=== PATIENT | male | born 1980 | race American Indian/Alaskan Native ===

== ENCOUNTER 2018-10-29 22:18 | Observation (INO) | payer MEDICAID, OTHER ==
[2018-10-29] MEDS ORDERED: Ondansetron 4 MG/2 ML SDV IV ONE ×2 (22:19→23:48)
[2018-10-29] MEDS ORDERED: Sodium Chloride 0.9% 1,000 ML IV ONE (22:20)
[2018-10-29] MEDS ORDERED: Pantoprazole 40 MG Vial IVPUSH ONE (22:35)
[2018-10-29] MEDS ORDERED: Metoclopramide 10 MG/2 ML SDV IVPUSH ONE (22:51)
[2018-10-29 22:52] LABS: ANION GAP 17.8; CHLORIDE,CL 102 mmol/L (101-111); SODIUM,NA 139 mmol/L (135-145)
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
[2018-10-30] MEDS ORDERED: Promethazine 25 MG/ML SDV IM PRN (01:20)
[2018-10-30] MEDS ORDERED: Ondansetron 4 MG/2 ML SDV IVPUSH PRN (01:20)
[2018-10-30] MEDS ORDERED: Sodium Chloride 0.9% 1,000 ML IV SCH (01:30)
[2018-10-30] MEDS ORDERED: Nicotine 14 MG/24 Hr Patch TRDERM SCH (01:30)
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
[2018-10-30] MEDS ORDERED: metFORMIN 500 MG Tab PO SCH (08:00)
[2018-10-30] MEDS ORDERED: Pantoprazole 40 MG Vial IVPUSH SCH (09:00)
[2018-10-30] MEDS ORDERED: Lisinopril 20 MG Tab PO SCH (09:00)
[2018-10-30] MEDS ORDERED: Sodium Chloride 0.9% 10 ML Syringe FLUSH PRN (10:47)
[2018-10-30] MEDS ORDERED: Benzocaine 20% Topical Spray UD MUCMEM ONE (11:46)
[2018-10-30] MEDS ORDERED: Midazolam 1 MG/ML 2 ML SDV ONE ×2 (11:46→12:11)
--- NOTE | 2018-10-30 11:46 | PCM.SN ---
- Free Text/Narrative Note: Asked to see patient for possible GI bleed. Had black tar stool and coffee ground emesis. History of epigastric abdominal pain. Hgb is stable. Discussed rec for EGD and will proceed with this today. Dr. Mccormack
--- NOTE | 2018-10-30 12:08 | PCM.PN ---
- General Info Date of Service: 10/30/18 Admission Dx/Problem (Free Text): Admission Diagnosis/Problem Admission Diagnosis/Problem GI bleed not requiring more than 4 units of blood in 24 hours, ICU, or surgery Subjective Update: No acute events overnight. Had nausea but did not have emesis. Tried taking clear liquids and had epigastric pain with warm food. Has not tried to ambulate yet. Otherwise, no acute concerns. - Review of Systems General: Reports: No Symptoms HEENT: Reports: No Symptoms Pulmonary: Reports: No Symptoms Cardiovascular: Reports: No Symptoms Gastrointestinal: Reports: No Symptoms Genitourinary: Reports: No Symptoms Musculoskeletal: Reports: No Symptoms Skin: Reports: No Symptoms Neurological: Reports: No Symptoms Psychiatric: Reports: No Symptoms - Patient Data Vitals - Most Recent: Last Vital Signs Temp 99.7 F 10/30/18 08:19 Pulse 91 10/30/18 08:19 Resp 18 10/30/18 08:19 BP 162/88 H 10/30/18 08:35 Pulse Ox 97 10/30/18 08:19 Weight - Most Recent: 221 lb 14.4 oz I&O - Last 24 Hours: Intake & Output 10/29/18 10/30/18 10/30/18 22:59 06:59 14:59 Intake Total 482 738 Balance 482 738 Lab Results Last 24 Hours: Laboratory Results - last 24 hr 10/29/18 10/29/18 10/29/18 Range/Units 22:26 22:26 23:38 WBC 11.8 H (5.0-10.0) 10^3/uL RBC 4.89 (4.6-6.2) 10^6/uL Hgb 14.6 (14.0-18.0) g/dL Hct 42.3 (40.0-54.0) % MCV 86.5 (80-100) fL MCH 29.9 (27.0-34.0) pg MCHC 34.5 (33.0-35.0) g/dL Plt Count 174 (150-450) 10^3/uL Neut % (Auto) 88.2 H (42.2-75.2) % Lymph % (Auto) 7.5 L (20.5-50.1) % [place] % (Auto) 4.1 (2-8) % Eos % (Auto) 0.0 L (1.0-3.0) % Baso % (Auto) 0.2 (0.0-1.0) % PT (9.0-12.0) SEC INR (0.9-1.2) Sodium 139 (135-145) mmol/L Potassium 3.8 (3.6-5.0) mmol/L Chloride 102 (101-111) mmol/L Carbon Dioxide 23.0 (21.0-31.0) mmol/L Anion Gap 17.8 BUN 23 H (7-18) mg/dL Creatinine 1.3 (0.6-1.3) mg/dL Est Cr Clr Drug Dosing 81.25 mL/min Estimated GFR (MDRD) > 60 BUN/Creatinine Ratio 17.69 Glucose 170 H (74-105) mg/dL Lactic Acid 1.1 (0.5-2.2) mmol/L Calcium 8.9 (8.4-10.2) mg/dl Total Bilirubin 1.8 H (0.2-1.0) mg/dL AST 29 (10-42) IU/L ALT 27 (10-60) IU/L Alkaline Phosphatase 71 (42-121) IU/L Total Protein 7.8 (6.7-8.2) g/dl Albumin 4.1 (3.2-5.5) g/dl Globulin 3.7 Albumin/Globulin Ratio 1.11 Amylase 43 (28-100) U/L Lipase (22-51) U/L Blood Type Gel Antibody Screen 10/30/18 10/30/18 10/30/18 Range/Units 02:30 02:30 02:30 WBC (5.0-10.0) 10^3/uL RBC (4.6-6.2) 10^6/uL Hgb 14.0 (14.0-18.0) g/dL Hct 40.4 (40.0-54.0) % MCV (80-100) fL MCH (27.0-34.0) pg MCHC (33.0-35.0) g/dL Plt Count (150-450) 10^3/uL Neut % (Auto) (42.2-75.2) % Lymph % (Auto) (20.5-50.1) % [place] % (Auto) (2-8) % Eos % (Auto) (1.0-3.0) % Baso % (Auto) (0.0-1.0) % PT 9.9 (9.0-12.0) SEC INR 1.0 (0.9-1.2) Sodium (135-145) mmol/L Potassium (3.6-5.0) mmol/L Chloride (101-111) mmol/L Carbon Dioxide (21.0-31.0) mmol/L Anion Gap BUN (7-18) mg/dL Creatinine (0.6-1.3) mg/dL Est Cr Clr Drug Dosing mL/min Estimated GFR (MDRD) BUN/Creatinine Ratio Glucose (74-105) mg/dL Lactic Acid (0.5-2.2) mmol/L Calcium (8.4-10.2) mg/dl Total Bilirubin (0.2-1.0) mg/dL AST (10-42) IU/L ALT (10-60) IU/L Alkaline Phosphatase (42-121) IU/L Total Protein (6.7-8.2) g/dl Albumin (3.2-5.5) g/dl Globulin Albumin/Globulin Ratio Amylase (28-100) U/L Lipase 24 (22-51) U/L Blood Type Gel Antibody Screen 10/30/18 10/30/18 10/30/18 Range/Units 02:30 06:20 10:35 WBC (5.0-10.0) 10^3/uL RBC (4.6-6.2) 10^6/uL Hgb 13.6 L 13.8 L (14.0-18.0) g/dL Hct 39.3 L 40.4 (40.0-54.0) % MCV (80-100) fL MCH (27.0-34.0) pg MCHC (33.0-35.0) g/dL Plt Count (150-450) 10^3/uL Neut % (Auto) (42.2-75.2) % Lymph % (Auto) (20.5-50.1) % [place] % (Auto) (2-8) % Eos % (Auto) (1.0-3.0) % Baso % (Auto) (0.0-1.0) % PT (9.0-12.0) SEC INR (0.9-1.2) Sodium (135-145) mmol/L Potassium (3.6-5.0) mmol/L Chloride (101-111) mmol/L Carbon Dioxide (21.0-31.0) mmol/L Anion Gap BUN (7-18) mg/dL Creatinine (0.6-1.3) mg/dL Est Cr Clr Drug Dosing mL/min Estimated GFR (MDRD) BUN/Creatinine Ratio Glucose (74-105) mg/dL Lactic Acid (0.5-2.2) mmol/L Calcium (8.4-10.2) mg/dl Total Bilirubin (0.2-1.0) mg/dL AST (10-42) IU/L ALT (10-60) IU/L Alkaline Phosphatase (42-121) IU/L Total Protein (6.7-8.2) g/dl Albumin (3.2-5.5) g/dl Globulin Albumin/Globulin Ratio Amylase (28-100) U/L Lipase (22-51) U/L Blood Type B POSITIVE Gel Antibody Screen Negative Oj Results Last 24 Hours: Microbiology 10/29/18 22:35 Stool Occult Blood (OJ) - Final Stool / Feces Med Orders - Current: Current Medications Sodium Chloride (Normal Saline) 1,000 mls @ 125 mls/hr IV ASDIRECTED [facility] Last Admin: 10/30/18 01:58 Dose: 125 mls/hr Lisinopril (Prinivil) 20 mg PO DAILY [facility] Last Admin: 10/30/18 08:35 Dose: 20 mg Metformin HCl (Glucophage) 1,000 mg PO BIDMEALS [facility] Last Admin: 10/30/18 08:35 Dose: 1,000 mg Nicotine (Habitrol) 14 mg TRDERM DAILY [facility] Last Admin: 10/30/18 01:56 Dose: 14 mg Ondansetron HCl (Zofran) 4 mg IVPUSH Q4H PRN PRN Reason: Nausea/Vomiting Last Admin: 10/30/18 08:34 Dose: 4 mg Pantoprazole Sodium (Protonix Iv) 40 mg IVPUSH Q12H [facility] Last Admin: 10/30/18 08:34 Dose: 40 mg Promethazine HCl (Phenergan) 6.25 mg IM Q6H PRN PRN Reason: Nausea/Vomiting Last Admin: 10/30/18 01:59 Dose: 6.25 mg Sodium Chloride (Saline Flush) 10 ml FLUSH ASDIRECTED PRN PRN Reason: Keep Vein Open Discontinued Medications Benzocaine (Hurricaine One 20%) Confirm Administered Dose 1 each MUCMEM .STK- MED ONE Stop: 10/30/18 11:47 Sodium Chloride (Normal Saline) 1,000 mls @ 999 mls/hr IV .BOLUS ONE Stop: 10/29/18 23:20 Last Admin: 10/29/18 22:28 Dose: 999 mls/hr Metoclopramide HCl (Reglan) 10 mg IVPUSH ONETIME ONE Stop: 10/29/18 22:52 Last Admin: 10/29/18 22:54 Dose: 10 mg Midazolam HCl (Versed 1 Mg/Ml) Confirm Administered Dose 4 mg .ROUTE .STK-MED ONE Stop: 10/30/18 11:47 Ondansetron HCl (Zofran) 4 mg IV ONETIME ONE Stop: 10/29/18 22:20 Last Admin: 10/29/18 22:28 Dose: 4 mg Ondansetron HCl (Zofran) 4 mg IV ONETIME ONE Stop: 10/29/18 23:49 Last Admin: 10/29/18 23:50 Dose: 4 mg Pantoprazole Sodium (Protonix Iv) 80 mg IVPUSH .BOLUS ONE Stop: 10/29/18 22:36 Last Admin: 10/29/18 22:40 Dose: 80 mg - Exam General: Alert, Oriented HEENT: Pupils Equal, Pupils Reactive, Mucous Membr. Moist/[place] Neck: Supple Lungs: Clear to Auscultation, Normal Respiratory Effort Cardiovascular: Regular Rate, Regular Rhythm GI/Abdominal Exam: Normal Bowel Sounds, Soft, Non-Tender, No Distention Extremities: Normal Inspection, Non-Tender, No Pedal Edema Peripheral Pulses: 2+: Radial (L), Radial (R), Dorsalis Pedis (L), Dorsalis Pedis (R) Skin: Warm, Dry, Intact Neurological: No New Focal Deficit Psy/Mental Status: Alert, Normal Affect, Normal Mood - Problem List & Annotations (1) GI bleed SNOMED Code(s): 62276577 Code(s): K92.2 - GASTROINTESTINAL HEMORRHAGE, UNSPECIFIED Status: Acute Current Visit: Yes (2) Dehydration SNOMED Code(s): 69307084 Code(s): E86.0 - DEHYDRATION Status: Acute Current Visit: No (3) Gastroenteritis SNOMED Code(s): 89963134 Code(s): K52.9 - NONINFECTIVE GASTROENTERITIS AND COLITIS, UNSPECIFIED Status: Acute Current Visit: No (4) HTN (hypertension) SNOMED Code(s): 13532020 Code(s): I10 - ESSENTIAL (PRIMARY) HYPERTENSION Status: Acute Current Visit: No Qualifiers: Hypertension type: unspecified Qualified Code(s): I10 - Essential (primary ) hypertension (5) Hematest positive stools SNOMED Code(s): 92799721 Code(s): R19.5 - OTHER FECAL ABNORMALITIES Status: Acute Current Visit: No (6) IDDM (insulin dependent diabetes mellitus) SNOMED Code(s): 48178619 Code(s): E11.9 - TYPE 2 DIABETES MELLITUS WITHOUT COMPLICATIONS; Z79.4 - [employer]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 INSULIN Status: Acute Current Visit: No - Problem List Review Problem List Initiated/Reviewed/Updated: Yes - My Orders Last 24 Hours: My Active Orders 10/30/18 01:20 Patient Status [ADT] Routine Oxygen Therapy [RC] PRN Up With Assistance [RC] ASDIRECTED VTE/DVT Education [RC] PER UNIT ROUTINE Vital Signs [RC] Q4H Ondansetron [Zofran] 4 mg IVPUSH Q4H PRN Promethazine [Phenergan] 6.25 mg IM Q6H PRN Anticoagulation Contraindications VTE [AST] Per Unit Routine Resuscitation Status Routine 10/30/18 01:30 Nicotine [Habitrol] 14 mg TRDERM DAILY Sodium Chloride 0.9% [Normal Saline] 1,000 ml IV ASDIRECTED 10/30/18 01:52 H PYLORI STOOL ANTIGEN [MREF] Routine 10/30/18 08:00 metFORMIN [Glucophage] 1,000 mg PO BIDMEALS 10/30/18 09:00 Lisinopril [Prinivil] 20 mg PO DAILY Pantoprazole [ProTONIX IV] 40 mg IVPUSH Q12H 10/30/18 10:47 Peripheral IV Care [RC] 08,20 Sodium Chloride 0.9% [Saline Flush] 10 ml FLUSH ASDIRECTED PRN Peripheral IV Insertion Adult [OM.PC] Routine 10/30/18 14:30 HEMOGLOBIN/HEMATOCRIT,HH [HEME] Q4H 10/30/18 18:30 HEMOGLOBIN/HEMATOCRIT,HH [HEME] Q4H 10/30/18 Lunch Advance Diet Instructions [DIET] - Plan Plan:: #Upper GI bleed: patient with coffee-ground emesis and melenic stools. Denies prior episodes. Possible [place] tear vs peptic ulcer. - CLD - Trend H/H - Transfuse for Hb <7 or if patient is symptomatic. - Proceed to obtain endoscopy inpatient . - IV PPI. - Obtain H pylori serology #N/V/D: improved with IV Reglan and IV zofran. - Continue Zofran IV/PO - Start phenergan IV/PO - Use PO if tolerated. - If diarrhea recurs, obtain stool studies. #HTN: continue lisinopril. # DM II: - continue metformin. - Hold Levemir. DVT Ppx: SCD GI Ppx: PPI Code Status: Full Code.
[2018-10-30] MEDS ORDERED: Midazolam 1 MG/ML 2 ML SDV IV ONE ×4 (12:10→16:49)
[2018-10-30] MEDS ORDERED: Benzocaine 20% Oral Spray 59.2 ML Canister MUCMEM ONE (12:13)
[2018-10-30] MEDS ORDERED: Dextrose 5%-0.45% NaCl 1,000 ML IV SCH (12:15)
--- NOTE | 2018-10-30 13:05 | OR ---
DATE: 10/30/2018 PREOPERATIVE DIAGNOSIS: Gastrointestinal bleed. POSTOPERATIVE DIAGNOSIS: Gastrointestinal bleed. PROCEDURE: Esophagogastroduodenoscopy with photographs. ANESTHESIA: Conscious sedation with IV Versed. SPECIMEN: None. OPERATIVE FINDINGS: A large hiatal hernia with at least half the stomach in a mediastinal hernia sac and significant distal esophagitis, probably the cause of his Hemoccult-positive cards. He has no evidence of gastric ulcerations, however, or duodenal ulcers. INDICATION FOR PROCEDURE: This 38-year-old male has been admitted to the hospital for evaluation of black tarry stools and coffee-ground emesis. He has a stable hemoglobin, however. PROCEDURE IN DETAIL: After adequate preparation, a gastroscope was inserted into the esophagus and passed down to the distal esophagus. It showed some white coating plaques with evidence of some prior bleeding from the raw tissue at the distal esophagus. Shows no evidence of masses or distal growths. The scope was advanced through the EG junction into the stomach, and it took me quite a while to figure out that this would represent a large hiatal hernia sac. It was difficult to find the opening through which the stomach came through, but I was eventually oriented enough to advance the scope through the diaphragmatic opening into the remaining stomach which contained the antrum and pre-pyloric area. There was no evidence of bleeding in this area. The scope was advanced through the pylorus, and the first and second parts of the duodenum were normal. On withdrawal of the scope, a photograph of the hiatal hernia was taken more than likely. However, this does not need surgery even though it is very impressive and large. His bleeding is mostly I think going to be esophageal in origin. Air was suctioned from the stomach, and the scope was removed. [facility] /[id number]
[2018-10-30] MEDS ORDERED: Ondansetron 4 MG Tab.DIS PO PRN (16:09)
--- NOTE | 2018-10-30 16:19 | PCM.DCSUM1 ---
Discharge Summary - Hospital Course Free Text/Narrative:: Assessment a 58-year-old male with medical history significant for diabetes, hypertension, obesity, and tobacco use who presented to the ED with complaints of nausea, vomiting, coffee-ground emesis, diarrhea, and lightheadedness. He was given IV Zofran and Reglan in the ED. His nausea resolved. His hemoglobin dropped from 14.6 on presentation to 13.6. He underwent endoscopy with finding of large hiatal hernia and erosive esophagitis. He tolerated PO diet. He was discharged home to follow up with his PCP. He was given Zofran for nausea and protonix. Diagnosis: Stroke: No - Discharge Data Discharge Date: 10/30/18 Discharge Disposition: Home, Self-Care 01 Condition: Stable - Discharge Diagnosis/Problem(s) (1) GI bleed SNOMED Code(s): 40552701 ICD Code: K92.2 - GASTROINTESTINAL HEMORRHAGE, UNSPECIFIED Status: Acute Current Visit: Yes (2) Dehydration SNOMED Code(s): 45772563 ICD Code: E86.0 - DEHYDRATION Status: Acute Current Visit: Yes (3) Gastroenteritis SNOMED Code(s): 62503973 ICD Code: K52.9 - NONINFECTIVE GASTROENTERITIS AND COLITIS, UNSPECIFIED Status: Acute Current Visit: Yes (4) HTN (hypertension) SNOMED Code(s): 36725408 ICD Code: I10 - ESSENTIAL (PRIMARY) HYPERTENSION Status: Acute Current Visit: Yes Qualifiers: Hypertension type: unspecified Qualified Code(s): I10 - Essential (primary ) hypertension (5) Hematest positive stools SNOMED Code(s): 97997523 ICD Code: R19.5 - OTHER FECAL ABNORMALITIES Status: Acute Current Visit: Yes (6) IDDM (insulin dependent diabetes mellitus) SNOMED Code(s): 72632213 ICD Code: E11.9 - TYPE 2 DIABETES MELLITUS WITHOUT COMPLICATIONS; 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 INSULIN Status: Acute Current Visit: No (7) Hiatal hernia SNOMED Code(s): 51897141 ICD Code: K44.9 - DIAPHRAGMATIC HERNIA WITHOUT OBSTRUCTION OR GANGRENE Status: Acute Current Visit: Yes (8) Esophagitis determined by endoscopy SNOMED Code(s): 75734415, 342736650 ICD Code: K20.9 - ESOPHAGITIS, UNSPECIFIED Status: Acute Current Visit: Yes - Patient Instructions Diet: Heart Healthy Diet Activity: As Tolerated Driving: May Drive Today Showering/Bathing: May Shower Notify Provider of: Nausea and/or Vomiting - Discharge Plan *PRESCRIPTION DRUG MONITORING PROGRAM REVIEWED*: Not Applicable *COPY OF PRESCRIPTION DRUG MONITORING REPORT IN PATIENT IDALIA: Not Applicable Prescriptions/Med Rec: Ondansetron [Zofran ODT] 4 mg PO Q6H PRN #20 tab.dis PRN Reason: Nausea/Vomiting Pantoprazole [ProTONIX] 40 mg PO BIDAC #60 tab.cr Home Medications: Home Meds Insulin Detemir [Levemir] 2 unit SUBCUT DAILY 04/17/18 [History] Lisinopril 20 mg PO DAILY 04/17/18 [History] metFORMIN HCl [Metformin HCl] 1,000 mg PO BID 04/17/18 [History] Ondansetron [Zofran ODT] 4 mg PO Q6H PRN #20 tab.dis 10/30/18 [Rx] Pantoprazole [ProTONIX] 40 mg PO BIDAC #60 tab.cr 10/30/18 [Rx] Oxygen Therapy Mode: Room Air Patient Handouts: Esophagogastroduodenoscopy, Esophagitis, Ondansetron tablets , Hiatal Hernia, Esophagogastroduodenoscopy, Care After - Discharge Summary/Plan Comment DC Time >30 min.: No - General Info Date of Service: 10/30/18 Admission Dx/Problem (Free Text: Admission Diagnosis/Problem Admission Diagnosis/Problem GI bleed not requiring more than 4 units of blood in 24 hours, ICU, or surgery Subjective Update: See daily progress note - Review of Systems Systems Review Comment: See daily progress note. - Patient Data Vitals - Most Recent: Last Vital Signs Temp 98.7 F 10/30/18 15:43 Pulse 93 10/30/18 15:43 Resp 20 10/30/18 15:43 BP 121/79 10/30/18 15:43 Pulse Ox 99 10/30/18 15:43 Weight - Most Recent: 221 lb 14.4 oz I&O - Last 24 hours: Intake & Output 10/30/18 10/30/18 10/30/18 06:59 14:59 22:59 Intake Total 482 738 Balance 482 738 Lab Results - Last 24 hrs: Laboratory Results - last 24 hr 10/29/18 10/29/18 10/29/18 Range/Units 22:26 22:26 23:38 WBC 11.8 H (5.0-10.0) 10^3/uL RBC 4.89 (4.6-6.2) 10^6/uL Hgb 14.6 (14.0-18.0) g/dL Hct 42.3 (40.0-54.0) % MCV 86.5 (80-100) fL MCH 29.9 (27.0-34.0) pg MCHC 34.5 (33.0-35.0) g/dL Plt Count 174 (150-450) 10^3/uL Neut % (Auto) 88.2 H (42.2-75.2) % Lymph % (Auto) 7.5 L (20.5-50.1) % [place] % (Auto) 4.1 (2-8) % Eos % (Auto) 0.0 L (1.0-3.0) % Baso % (Auto) 0.2 (0.0-1.0) % PT (9.0-12.0) SEC INR (0.9-1.2) Sodium 139 (135-145) mmol/L Potassium 3.8 (3.6-5.0) mmol/L Chloride 102 (101-111) mmol/L Carbon Dioxide 23.0 (21.0-31.0) mmol/L Anion Gap 17.8 BUN 23 H (7-18) mg/dL Creatinine 1.3 (0.6-1.3) mg/dL Est Cr Clr Drug Dosing 81.25 mL/min Estimated GFR (MDRD) > 60 BUN/Creatinine Ratio 17.69 Glucose 170 H (74-105) mg/dL Lactic Acid 1.1 (0.5-2.2) mmol/L Calcium 8.9 (8.4-10.2) mg/dl Total Bilirubin 1.8 H (0.2-1.0) mg/dL AST 29 (10-42) IU/L ALT 27 (10-60) IU/L Alkaline Phosphatase 71 (42-121) IU/L Total Protein 7.8 (6.7-8.2) g/dl Albumin 4.1 (3.2-5.5) g/dl Globulin 3.7 Albumin/Globulin Ratio 1.11 Amylase 43 (28-100) U/L Lipase (22-51) U/L Blood Type Gel Antibody Screen 10/30/18 10/30/18 10/30/18 Range/Units 02:30 02:30 02:30 WBC (5.0-10.0) 10^3/uL RBC (4.6-6.2) 10^6/uL Hgb 14.0 (14.0-18.0) g/dL Hct 40.4 (40.0-54.0) % MCV (80-100) fL MCH (27.0-34.0) pg MCHC (33.0-35.0) g/dL Plt Count (150-450) 10^3/uL Neut % (Auto) (42.2-75.2) % Lymph % (Auto) (20.5-50.1) % [place] % (Auto) (2-8) % Eos % (Auto) (1.0-3.0) % Baso % (Auto) (0.0-1.0) % PT 9.9 (9.0-12.0) SEC INR 1.0 (0.9-1.2) Sodium (135-145) mmol/L Potassium (3.6-5.0) mmol/L Chloride (101-111) mmol/L Carbon Dioxide (21.0-31.0) mmol/L Anion Gap BUN (7-18) mg/dL Creatinine (0.6-1.3) mg/dL Est Cr Clr Drug Dosing mL/min Estimated GFR (MDRD) BUN/Creatinine Ratio Glucose (74-105) mg/dL Lactic Acid (0.5-2.2) mmol/L Calcium (8.4-10.2) mg/dl Total Bilirubin (0.2-1.0) mg/dL AST (10-42) IU/L ALT (10-60) IU/L Alkaline Phosphatase (42-121) IU/L Total Protein (6.7-8.2) g/dl Albumin (3.2-5.5) g/dl Globulin Albumin/Globulin Ratio Amylase (28-100) U/L Lipase 24 (22-51) U/L Blood Type Gel Antibody Screen 10/30/18 10/30/1819 Range/Units 02:30 06:20 10:35 WBC (5.0-10.0) 10^3/uL RBC (4.6-6.2) 10^6/uL Hgb 13.6 L 13.8 L (14.0-18.0) g/dL Hct 39.3 L 40.4 (40.0-54.0) % MCV (80-100) fL MCH (27.0-34.0) pg MCHC (33.0-35.0) g/dL Plt Count (150-450) 10^3/uL Neut % (Auto) (42.2-75.2) % Lymph % (Auto) (20.5-50.1) % [place] % (Auto) (2-8) % Eos % (Auto) (1.0-3.0) % Baso % (Auto) (0.0-1.0) % PT (9.0-12.0) SEC INR (0.9-1.2) Sodium (135-145) mmol/L Potassium (3.6-5.0) mmol/L Chloride (101-111) mmol/L Carbon Dioxide (21.0-31.0) mmol/L Anion Gap BUN (7-18) mg/dL Creatinine (0.6-1.3) mg/dL Est Cr Clr Drug Dosing mL/min Estimated GFR (MDRD) BUN/Creatinine Ratio Glucose (74-105) mg/dL Lactic Acid (0.5-2.2) mmol/L Calcium (8.4-10.2) mg/dl Total Bilirubin (0.2-1.0) mg/dL AST (10-42) IU/L ALT (10-60) IU/L Alkaline Phosphatase (42-121) IU/L Total Protein (6.7-8.2) g/dl Albumin (3.2-5.5) g/dl Globulin Albumin/Globulin Ratio Amylase (28-100) U/L Lipase (22-51) U/L Blood Type B POSITIVE Gel Antibody Screen Negative 10/30/18 Range/Units 14:24 WBC (5.0-10.0) 10^3/uL RBC (4.6-6.2) 10^6/uL Hgb 13.6 L (14.0-18.0) g/dL Hct 39.9 L (40.0-54.0) % MCV (80-100) fL MCH (27.0-34.0) pg MCHC (33.0-35.0) g/dL Plt Count (150-450) 10^3/uL Neut % (Auto) (42.2-75.2) % Lymph % (Auto) (20.5-50.1) % [place] % (Auto) (2-8) % Eos % (Auto) (1.0-3.0) % Baso % (Auto) (0.0-1.0) % PT (9.0-12.0) SEC INR (0.9-1.2) Sodium (135-145) mmol/L Potassium (3.6-5.0) mmol/L Chloride (101-111) mmol/L Carbon Dioxide (21.0-31.0) mmol/L Anion Gap BUN (7-18) mg/dL Creatinine (0.6-1.3) mg/dL Est Cr Clr Drug Dosing mL/min Estimated GFR (MDRD) BUN/Creatinine Ratio Glucose (74-105) mg/dL Lactic Acid (0.5-2.2) mmol/L Calcium (8.4-10.2) mg/dl Total Bilirubin (0.2-1.0) mg/dL AST (10-42) IU/L ALT (10-60) IU/L Alkaline Phosphatase (42-121) IU/L Total Protein (6.7-8.2) g/dl Albumin (3.2-5.5) g/dl Globulin Albumin/Globulin Ratio Amylase (28-100) U/L Lipase (22-51) U/L Blood Type Gel Antibody Screen YUDITH Results - Last 24 hrs: Microbiology 10/29/18 22:35 Stool Occult Blood (YUDITH) - Final Stool / Feces Med Orders - Current: Current Medications Dextrose/Sodium Chloride (Dextrose 5%-1/2 Ns) 1,000 mls @ 75 mls/hr IV ASDIRECTED [facility] Last Admin: 10/30/18 12:10 Dose: 75 mls/hr Lisinopril (Prinivil) 20 mg PO DAILY [facility] Last Admin: 10/30/18 08:35 Dose: 20 mg Metformin HCl (Glucophage) 1,000 mg PO BIDMEALS [facility] Last Admin: 10/30/18 08:35 Dose: 1,000 mg Nicotine (Habitrol) 14 mg TRDERM DAILY [facility] Last Admin: 10/30/18 01:56 Dose: 14 mg Ondansetron HCl (Zofran) 4 mg IVPUSH Q4H PRN PRN Reason: Nausea/Vomiting Last Admin: 10/30/18 08:34 Dose: 4 mg Ondansetron HCl (Zofran Odt) 4 mg PO Q6H PRN PRN Reason: Nausea/Vomiting Pantoprazole Sodium (Protonix Iv) 40 mg IVPUSH Q12H [facility] Last Admin: 10/30/18 08:34 Dose: 40 mg Promethazine HCl (Phenergan) 6.25 mg IM Q6H PRN PRN Reason: Nausea/Vomiting Last Admin: 10/30/18 01:59 Dose: 6.25 mg Sodium Chloride (Saline Flush) 10 ml FLUSH ASDIRECTED PRN PRN Reason: Keep Vein Open Discontinued Medications Benzocaine (Hurricaine One 20%) Confirm Administered Dose 1 each MUCMEM .STK- MED ONE Stop: 10/30/18 11:47 Benzocaine (Hurricaine 20% [place]) 1 ml MUCMEM .STK-MED ONE Stop: 10/30/18 12:14 Last Admin: 10/30/18 12:13 Dose: 1 ml Sodium Chloride (Normal Saline) 1,000 mls @ 999 mls/hr IV .BOLUS ONE Stop: 10/29/18 23:20 Last Admin: 10/29/18 22:28 Dose: 999 mls/hr Sodium Chloride (Normal Saline) 1,000 mls @ 125 mls/hr IV ASDIRECTED [facility] Last Admin: 10/30/18 01:58 Dose: 125 mls/hr Metoclopramide HCl (Reglan) 10 mg IVPUSH ONETIME ONE Stop: 10/29/18 22:52 Last Admin: 10/29/18 22:54 Dose: 10 mg Midazolam HCl (Versed 1 Mg/Ml) Confirm Administered Dose 4 mg .ROUTE .STK-MED ONE Stop: 10/30/18 11:47 Midazolam HCl (Versed 1 Mg/Ml) Confirm Administered Dose 2 mg .ROUTE .STK-MED ONE Stop: 10/30/18 12:12 Midazolam HCl (Versed 1 Mg/Ml) 2 mg IV .STK-MED ONE Stop: 10/30/18 12:11 Last Admin: 10/30/18 12:10 Dose: 2 mg Midazolam HCl (Versed 1 Mg/Ml) 2 mg IV .STK-MED ONE Stop: 10/30/18 12:12 Last Admin: 10/30/18 12:11 Dose: 2 mg Midazolam HCl (Versed 1 Mg/Ml) 2 mg IV .STK-MED ONE Stop: 10/30/18 12:14 Last Admin: 10/30/18 12:13 Dose: 2 mg Ondansetron HCl (Zofran) 4 mg IV ONETIME ONE Stop: 10/29/18 22:20 Last Admin: 10/29/18 22:28 Dose: 4 mg Ondansetron HCl (Zofran) 4 mg IV ONETIME ONE Stop: 10/29/18 23:49 Last Admin: 10/29/18 23:50 Dose: 4 mg Pantoprazole Sodium (Protonix Iv) 80 mg IVPUSH .BOLUS ONE Stop: 10/29/18 22:36 Last Admin: 10/29/18 22:40 Dose: 80 mg - Exam Physical Findings Comments:: See daily progress note *Q Meaningful Use (DIS) - VTE *Q VTE Anticoagulation Contraindications: Medical/Procedure Contrai
[2018-10-30] MEDS ORDERED: Pantoprazole 40 MG Tab.CR PO SCH (17:00)
== END 2018-10-30 16:50 | disposition home or self-care (01) ==
LOC: DL.ED 22:18 → DL.MS 10-30 00:35 → UNDOADMOB 10-30 00:35 → DL.MS 10-30 01:20
PROVIDERS: ADMIT Internal Medicine; ATTEND Internal Medicine
DX: K52.9 Noninfective gastroenteritis and colitis, unspecified (principal); K20.9 Esophagitis, unspecified; K44.9 Diaphragmatic hernia without obstruction or gangrene; E86.0 Dehydration; I10 Essential (primary) hypertension; E11.9 Type 2 diabetes mellitus without complications; E66.9 Obesity, unspecified; Z68.32 Body mass index [BMI] 32.0-32.9, adult; F17.200 Nicotine dependence, unspecified, uncomplicated; Z79.4 Long term (current) use of insulin; Z79.899 Other long term (current) drug therapy; Z88.6 Allergy status to analgesic agent
CPT/HCPCS: 36415; 43235; 80053; 82150; 82272; 83605; 83690; 85014; 85018; 85025; 85610; 86850; 86900; 86901; 87040; 96361; 96372; 96374; 96375; 96376; 99285; A9270; C9113; G0378; J2250; J2405; J2550; J2765; J7030; J7042

== ENCOUNTER 2018-10-31 04:35 | Emergency (ER) | payer MEDICAID, OTHER ==
[2018-10-31] MEDS ORDERED: Metoclopramide 10 MG/2 ML SDV IVPUSH ONE (04:50)
[2018-10-31] MEDS ORDERED: Sodium Chloride 0.9% 1,000 ML IV ONE (04:50)
[2018-10-31] MEDS ORDERED: Promethazine 25 MG/ML SDV IM ONE (05:04)
[2018-10-31] MEDS ORDERED: Famotidine 20 MG/2 ML SDV IVPUSH ONE (05:08)
[2018-10-31 05:15] LABS: ANION GAP 15.3; CHLORIDE,CL 104 mmol/L (101-111); SODIUM,NA 137 mmol/L (135-145)
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
[2018-10-31] MEDS ORDERED: Ondansetron 4 MG/2 ML SDV IV ONE (06:31)
[2018-10-31] MEDS ORDERED: Haloperidol Lactate 5 MG/ML SDV IVPUSH ONE (07:15)
[2018-10-31] MEDS ORDERED: Pantoprazole 40 MG Vial IVPUSH ONE (07:21)
[2018-10-31] MEDS: GI Cocktail Oral Solution 30 ML PO ONE ×2 (07:21→11:45)
[2018-10-31] MEDS ORDERED: HYDROmorphone 1 MG/ML Syringe IVPUSH ONE (07:33)
[2018-10-31] MEDS ORDERED: Iopamidol 612 MG/ML 100 ML Bottle IVPUSH ONE (09:57)
--- NOTE | 2018-10-31 10:49 | US ---
Clinical history: 38-year-old male with nausea vomiting and abnormally elevated serum bilirubin. Interpretation: Gallbladder clearly demonstrated in the right upper quadrant beneath the liver margin is normal size anatomic configuration with uniformly thin wall. No pericystic fluid, close wall polyp or mobile dependent intraluminal echogenic "shadowing" gallstones. Liver normal size anatomic configuration. Homogeneous hepatic density without sign of discrete echogenic solid or hypoechoic cystic mass lesion. No abnormal dilatation of the intra or extrahepatic biliary ducts (common bile duct 5.3 mm diameter). Right kidney normal. No ascites. Pancreas incompletely visualized (gas). CONCLUSION: Negative gallbladder sonogram.
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
== END 2018-10-31 13:10 | disposition home or self-care (01) ==
LOC: DL.ED 04:35
DX: K80.50 Calculus of bile duct without cholangitis or cholecystitis without obstruction (principal); G43.A1 Cyclical vomiting, in migraine, intractable; Z88.8 Allergy status to other drugs, medicaments and biological substances; Z79.4 Long term (current) use of insulin; Z79.899 Other long term (current) drug therapy; I10 Essential (primary) hypertension; E11.9 Type 2 diabetes mellitus without complications
CPT/HCPCS: 36415; 74177; 76705; 80053; 85025; 96365; 96375; 99284; C9113; J1170; J1630; J2405; J2550; J2765; J3490; J7030; Q9967; A9270-GY

== ENCOUNTER 2019-07-05 13:22 | Emergency (ER) | payer SELFPAY ==
[2019-07-05] MEDS ORDERED: Metoclopramide 10 MG/2 ML SDV IVPUSH ONE (14:07)
[2019-07-05] MEDS ORDERED: Famotidine 20 MG/2 ML SDV IVPUSH ONE (14:08)
[2019-07-05] MEDS ORDERED: GI Cocktail Oral Solution 30 ML PO ONE (14:32)
[2019-07-05] MEDS ORDERED: LORazepam 1 MG Tab PO ONE (14:32)
[2019-07-05 14:33] LABS: ANION GAP 14.5; CHLORIDE,CL 105 mmol/L (101-111); SODIUM,NA 136 mmol/L (135-145)
[2019-07-05] MEDS ORDERED: MVI, Adult with Vitamin K 10 ML, Folic Acid 1 MG, Thiamine 100 MG in Lactated Ringers 1... IV ONE ×4 (14:33)
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
== END 2019-07-05 14:42 | disposition left against medical advice (07) ==
LOC: DL.ED 13:22
DX: K29.00 Acute gastritis without bleeding (principal); I10 Essential (primary) hypertension; E11.9 Type 2 diabetes mellitus without complications; Z88.6 Allergy status to analgesic agent; Z79.4 Long term (current) use of insulin; Z79.899 Other long term (current) drug therapy
CPT/HCPCS: 36415; 80053; 80320; 82009; 82150; 83690; 85025; 96374; 96375; 99284; A9270; J2765; J3490; G0480

== ENCOUNTER 2019-09-21 00:57 | Emergency (ER) | payer SELFPAY ==
[2019-09-21] MEDS ORDERED: Sodium Chloride 0.9% 1,000 ML IV ONE (01:13)
[2019-09-21] MEDS ORDERED: Ondansetron 4 MG/2 ML SDV IV ONE (01:13)
[2019-09-21] MEDS ORDERED: Famotidine 20 MG/2 ML SDV IVPUSH ONE (01:16)
[2019-09-21 01:41] LABS: ANION GAP 18.4; CHLORIDE,CL 105 mmol/L (101-111); SODIUM,NA 138 mmol/L (135-145)
[2019-09-21] MEDS ORDERED: Metoclopramide 10 MG/2 ML SDV IVPUSH ONE (01:51)
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
[2019-09-21] MEDS ORDERED: GI Cocktail Oral Solution 30 ML PO ONE (03:40)
[2019-09-21] MEDS ORDERED: Pantoprazole 40 MG Vial IVPUSH ONE (03:45)
[2019-09-21] MEDS ORDERED: Promethazine 25 MG/ML SDV IM ONE (03:45)
== END 2019-09-21 05:41 | disposition home or self-care (01) ==
LOC: DL.ED 00:57
DX: K21.9 Gastro-esophageal reflux disease without esophagitis (principal); K29.00 Acute gastritis without bleeding; R11.14 Bilious vomiting; I10 Essential (primary) hypertension; E11.9 Type 2 diabetes mellitus without complications; Z87.891 Personal history of nicotine dependence; Z88.8 Allergy status to other drugs, medicaments and biological substances; Z79.84 Long term (current) use of oral hypoglycemic drugs; Z79.899 Other long term (current) drug therapy
CPT/HCPCS: 36415; 80053; 80305; 80320; 82150; 83690; 84484; 85025; 93005; 96361; 96372; 96374; 96375; 99284; A9270; C9113; J2405; J2550; J2765; J3490; J7030; 99283; G0480

== ENCOUNTER 2019-11-07 17:00 | Emergency (ER) | payer SELFPAY ==
[2019-11-07] MEDS ORDERED: Sodium Chloride 0.9% 10 ML Syringe FLUSH PRN (18:01)
[2019-11-07] MEDS ORDERED: Sodium Chloride 0.9% 1,000 ML IV ONE (18:01)
[2019-11-07] MEDS ORDERED: Acetaminophen 500 MG Tab PO ONE (18:04)
[2019-11-07] MEDS ORDERED: fentaNYL 100 MCG/2 ML SDV IVPUSH ONE ×2 (18:04→20:12)
[2019-11-07 18:43] LABS: ANION GAP 14.4; CHLORIDE,CL 98 mmol/L (101-111); SODIUM,NA 130 mmol/L (135-145)
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
[2019-11-07] MEDS ORDERED: Clindamycin Phosphate 900 MG in Sodium Chloride 0.9% 100 ML IV ONE (19:21)
== END 2019-11-07 20:45 ==
LOC: DL.ED 17:00
DX: E11.52 Type 2 diabetes mellitus with diabetic peripheral angiopathy with gangrene (principal); I96 Gangrene, not elsewhere classified; I10 Essential (primary) hypertension; Z79.84 Long term (current) use of oral hypoglycemic drugs; Z88.8 Allergy status to other drugs, medicaments and biological substances
CPT/HCPCS: 36415; 71046; 73660; 80053; 80320; 81001; 83605; 85025; 87040; 87077; 96361; 96365; 96375; 96376; 99284; A9270; J3010; J3490; J7030; J7050; G0480

== ENCOUNTER 2020-01-20 13:18 | Emergency (ER) | payer OTHER ==
[2020-01-20] MEDS ORDERED: Sodium Chloride 0.9% 10 ML Syringe FLUSH PRN (13:33)
[2020-01-20] MEDS ORDERED: Sodium Chloride 0.9% 1,000 ML IV ONE (13:33)
[2020-01-20] MEDS ORDERED: diphenhydrAMINE 50 MG/ML SDV IVPUSH ONE (13:33)
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
[2020-01-20] MEDS ORDERED: Metoclopramide 10 MG/2 ML SDV IVPUSH ONE (13:34)
[2020-01-20] MEDS ORDERED: Haloperidol Lactate 5 MG/ML SDV IVPUSH ONE (13:34)
[2020-01-20] MEDS ORDERED: Pantoprazole 40 MG Vial IVPUSH ONE (13:35)
[2020-01-20 14:07] LABS: CHLORIDE,CL 101 mmol/L (98-107); SODIUM,NA 140 mmol/L (136-145)
== END 2020-01-20 14:55 | disposition home or self-care (01) ==
LOC: DL.ED 13:18
DX: F12.988 Cannabis use, unspecified with other cannabis-induced disorder (principal); K92.0 Hematemesis; I10 Essential (primary) hypertension; K21.9 Gastro-esophageal reflux disease without esophagitis; E11.9 Type 2 diabetes mellitus without complications; Z88.8 Allergy status to other drugs, medicaments and biological substances; Z79.84 Long term (current) use of oral hypoglycemic drugs; Z79.899 Other long term (current) drug therapy
CPT/HCPCS: 36415; 80053; 80307; 82150; 83690; 85025; 96361; 96374; 96375; 99283; 99284-25; C9113; J1200; J1630; J2765; J7030

== ENCOUNTER 2020-05-27 13:30 | Emergency (ER) | payer OTHER ==
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
[2020-05-27] MEDS ORDERED: diphenhydrAMINE 50 MG/ML SDV IVPUSH ONE (13:51)
[2020-05-27] MEDS ORDERED: Ondansetron 4 MG/2 ML SDV IV ONE (13:51)
[2020-05-27 14:12] LABS: CHLORIDE,CL 103 mmol/L (98-107); SODIUM,NA 138 mmol/L (136-145)
[2020-05-27] MEDS ORDERED: Sodium Chloride 0.9% 1,000 ML IV ONE (14:38)
[2020-05-27] MEDS ORDERED: Metoclopramide 10 MG/2 ML SDV IVPUSH ONE (14:38)
[2020-05-27] MEDS ORDERED: Haloperidol Lactate 5 MG/ML SDV IVPUSH ONE (14:39)
== END 2020-05-27 15:44 | disposition home or self-care (01) ==
LOC: DL.ED 13:30
DX: F12.288 Cannabis dependence with other cannabis-induced disorder (principal); T63.481A Toxic effect of venom of other arthropod, accidental (unintentional), initial encounter; Z20.828 Contact with and (suspected) exposure to other viral communicable diseases; I10 Essential (primary) hypertension; E11.9 Type 2 diabetes mellitus without complications; K21.9 Gastro-esophageal reflux disease without esophagitis; Z88.8 Allergy status to other drugs, medicaments and biological substances; Z79.899 Other long term (current) drug therapy
CPT/HCPCS: 36415; 80053; 80307; 82150; 83690; 85025; 86140; 96361; 96374; 96375; 99283; 99284-25; J1200; J1630; J2405; J2765; J7030; U0002

== ENCOUNTER 2020-10-04 12:04 | Emergency (ER) | payer OTHER ==
[2020-10-04] MEDS ORDERED: Metoclopramide 10 MG/2 ML SDV IVPUSH ONE (12:06)
[2020-10-04 12:49] LABS: CHLORIDE,CL 105 mmol/L (98-107); SODIUM,NA 140 mmol/L (136-145)
[2020-10-04 12:50] LABS: ACETAMINOPHEN 0 ug/mL (10-30 (Therapeutic))
[2020-10-04] MEDS ORDERED: Sodium Chloride 0.9% 1,000 ML IV ONE (13:35)
[2020-10-04] MEDS ORDERED: Pantoprazole 40 MG Vial IVPUSH ONE (13:35)
[2020-10-04] MEDS ORDERED: Iopamidol 612 MG/ML 100 ML Bottle IVPUSH ONE (13:35)
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
--- NOTE | 2020-10-04 14:24 | CT ---
PROCEDURE INFORMATION: Exam: CT Abdomen And Pelvis With Contrast Exam date and time: 10/04/2020 1:55 PM Age: 40 years old Clinical indication: Abdominal pain; Epigastric; Additional info: Upper abdominal pain with nausea/vomiting TECHNIQUE: Imaging protocol: Computed tomography of the abdomen and pelvis with intravenous contrast. Radiation optimization: All CT scans at this facility use at least one of these dose optimization techniques: automated exposure control; mA and/or kV adjustment per patient size (includes targeted exams where dose is matched to clinical indication); or iterative reconstruction. Contrast material: ISOVUE 300; Contrast volume: 100 ml; Contrast route: INTRAVENOUS (IV); COMPARISON: CT Abdomen Pelvis w Cont 04/19/2019 4:19 PM FINDINGS: Lungs: Unremarkable.No mass or nodule. Liver: Normal. No mass. Gallbladder and bile ducts: Normal. No calcified stones. No ductal dilation. Pancreas: Normal. No ductal dilation. Spleen: Normal. No splenomegaly. Adrenal glands: Normal. No mass. Kidneys and ureters: Normal. No hydronephrosis. Stomach and bowel: Unremarkable. No obstruction. No mucosal thickening. Appendix: Normal appendix. Intraperitoneal space: Unremarkable. No free air. No significant fluid collection. Vasculature: Unremarkable. No abdominal aortic aneurysm. Lymph nodes: Unremarkable. No enlarged lymph nodes. Urinary bladder: Unremarkable as visualized. Reproductive: Unremarkable as visualized. Bones/joints: Unremarkable. No acute fracture. Soft tissues: Unremarkable. IMPRESSION: No acute abdominal or pelvic findings identified.
== END 2020-10-04 14:42 | disposition home or self-care (01) ==
LOC: DL.ED 12:04
DX: K52.9 Noninfective gastroenteritis and colitis, unspecified (principal); F12.90 Cannabis use, unspecified, uncomplicated; I10 Essential (primary) hypertension; K21.9 Gastro-esophageal reflux disease without esophagitis; E11.9 Type 2 diabetes mellitus without complications; F17.210 Nicotine dependence, cigarettes, uncomplicated; Z88.8 Allergy status to other drugs, medicaments and biological substances; Z79.899 Other long term (current) drug therapy; Z20.828 Contact with and (suspected) exposure to other viral communicable diseases
CPT/HCPCS: 36415; 74177; 80053; 80307; 82150; 83690; 85025; 87804; 96374; 96375; 99283; 99284-25; C9113; J2765; J7030; Q9967; U0002

== ENCOUNTER 2020-12-15 20:11 | Emergency (ER) | payer OTHER | END 2020-12-15 21:40 | disposition left against medical advice (07) | LOC: DL.ED 20:11 | DX: Z53.21 Procedure and treatment not carried out due to patient leaving prior to being seen by health care provider (principal) ==

== ENCOUNTER 2021-02-22 01:00 | Emergency (ER) | payer OTHER ==
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
[2021-02-22] MEDS ORDERED: Orphenadrine 60 MG/2 ML Inj IM ONE (02:58)
== END 2021-02-22 04:15 | disposition home or self-care (01) ==
LOC: DL.ED 01:00
DX: S13.4XXA Sprain of ligaments of cervical spine, initial encounter (principal); M54.6 Pain in thoracic spine; I10 Essential (primary) hypertension; E11.9 Type 2 diabetes mellitus without complications; K21.9 Gastro-esophageal reflux disease without esophagitis; Z88.8 Allergy status to other drugs, medicaments and biological substances; Z79.84 Long term (current) use of oral hypoglycemic drugs; Z79.899 Other long term (current) drug therapy; V49.49XA Driver injured in collision with other motor vehicles in traffic accident, initial encounter
CPT/HCPCS: 71046; 72040; 72080; 96372; 99284; 99284-25; J2360

== ENCOUNTER 2022-02-18 23:50 | Emergency (ER) | payer MEDICAID, OTHER ==
[2022-02-18 23:05] LABS: ANION GAP 12.4 mEq/L (7-13); CHLORIDE,CL 104 mmol/L (98-107); SODIUM,NA 139 mmol/L (136-145)
[2022-02-18 23:11] LABS: ACETAMINOPHEN 0 ug/mL (10-30 (Therapeutic))
[2022-02-19 00:25] LABS: AMPHETAMINES,URINE NEGATIVE (NEGATIVE); BARBITURATES,URINE NEGATIVE (NEGATIVE); BENZODIAZEPINE,URINE NEGATIVE (NEGATIVE); MDMA (ECSTASY), URINE NEGATIVE (NEGATIVE); METHADONE,URINE NEGATIVE (NEGATIVE); METHAMPHETAMINES,URINE NEGATIVE (NEGATIVE); OPIATES,URINE NEGATIVE (NEGATIVE); OXYCODONE,URINE NEGATIVE (NEGATIVE); PHENCYCLIDINE,URINE NEGATIVE (NEGATIVE); TCA,URINE NEGATIVE (NEGATIVE)
== END 2022-02-19 00:40 ==
LOC: DL.ED 23:50
DX: I10 Essential (primary) hypertension (principal); K21.9 Gastro-esophageal reflux disease without esophagitis; E11.9 Type 2 diabetes mellitus without complications; Z79.899 Other long term (current) drug therapy; Z79.84 Long term (current) use of oral hypoglycemic drugs; Z88.8 Allergy status to other drugs, medicaments and biological substances
CPT/HCPCS: 36415; 80053; 80143; 80179; 80305-QW; 80307; 81001; 85025; 99283

== ENCOUNTER 2023-05-19 14:37 | Emergency (ER) | payer OTHER ==
[2023-05-19 15:25] LABS: BASOPHILS PERCENT AUTO 0.2 % (0.0-1.0); EOSINOPHILS PERCENT AUTO 0.2 % (1.0-3.0); HEMATOCRIT 40.4 % (40.0-54.0); HEMOGLOBIN 13.5 g/dL (14.0-18.0); LYMPHOCYTES PERCENT AUTO 6.3 % (20.5-50.1); MEAN CORPUSCULAR HEMOGLOBIN 30.7 pg (27.0-34.0); MEAN CORPUSCULAR HGB CONC 33.4 g/dL (33.0-35.0); MEAN CORPUSCULAR VOLUME 91.8 fL (80-100); MONOCYTES PERCENT AUTO 3.6 % (2-8); NEUTROPHILS PERCENT AUTO 89.7 % (42.2-75.2); PLATELET COUNT,PLT 221 10^3/uL (150-450); WHITE BLOOD CELL COUNT,WBC 9.7 10^3/uL (5.0-10.0)
[2023-05-19] MEDS: Pantoprazole 40 MG Vial IVPUSH ONE (15:31)
[2023-05-19] MEDS: Sodium Chloride 0.9% 1,000 ML IV ONE (15:32)
[2023-05-19] MEDS: Ondansetron 4 MG/2 ML SDV IVPUSH ONE ×2 (15:32→16:03)
[2023-05-19 15:46] LABS: A/G RATIO 0.7; ALANINE AMINOTRANSFERASE,ALT 18 U/L (16-63); ALBUMIN 3.5 g/dL (3.4-5.0); ALKALINE PHOSPHATASE 91 U/L (46-116); ANION GAP 12.7 mEq/L (7-13); ASPARTATE AMNIOTRANSFERASE,AST 16 U/L (15-37); BILIRUBIN TOTAL 0.6 mg/dL (0.2-1.0); BLOOD UREA NITROGEN,BUN 20 mg/dL (7-18); BUN/CREATININE RATIO 13.2 (No establ ref range); C-REACTIVE PROTEIN 0.3 mg/dL (0.0-0.9); CALCIUM 8.6 mg/dL (8.5-10.1); CARBON DIOXIDE,CO2 26 mmol/L (21-32); CHLORIDE,CL 105 mmol/L (98-107); CREATININE 1.51 mg/dL (0.70-1.30); EST CRCL DRUG DOSING (CG) 65.13 mL/min; ESTIMATED GFR 58 mL/min (>=60); ETHANOL BLOOD MEDICAL < 3 mg/dL (0); GLUCOSE RANDOM 135 mg/dL (70-99); MAGNESIUM 1.8 mg/dL (1.8-2.4); POTASSIUM,K 3.7 mmol/L (3.5-5.1); PROTEIN TOTAL,TP 8.3 g/dL (6.4-8.2); SODIUM,NA 140 mmol/L (136-145)
[2023-05-19 15:49] LABS: LACTIC ACID 0.8 mmol/L (0.4-2.0)
[2023-05-19] MEDS: Famotidine 20 MG/2 ML SDV IVPUSH ONE (15:52)
[2023-05-19 16:02] LABS: APPEARANCE,URINE CLEAR (CLEAR); BILIRUBIN,URINE NEGATIVE (NEGATIVE); COLOR,URINE YELLOW (YELLOW); GLUCOSE,URINE NEGATIVE (NEGATIVE); KETONES,URINE TRACE (NEGATIVE); LEUKOCYTE ESTERASE,URINE NEGATIVE (NEGATIVE); NITRITE,URINE NEGATIVE (NEGATIVE); OCCULT BLOOD,URINE TRACE-INTACT (NEGATIVE); PH,URINE 8.5 (5.0-9.0); PROTEIN,URINE 100 (NEGATIVE)
[2023-05-19 16:07] LABS: AMPHETAMINES,URINE NEGATIVE (NEGATIVE); BARBITURATES,URINE NEGATIVE (NEGATIVE); BENZODIAZEPINE,URINE NEGATIVE (NEGATIVE); MDMA (ECSTASY), URINE NEGATIVE (NEGATIVE); METHADONE,URINE NEGATIVE (NEGATIVE); METHAMPHETAMINES,URINE NEGATIVE (NEGATIVE); OPIATES,URINE NEGATIVE (NEGATIVE); OXYCODONE,URINE NEGATIVE (NEGATIVE); PHENCYCLIDINE,URINE NEGATIVE (NEGATIVE); TCA,URINE NEGATIVE (NEGATIVE)
[2023-05-19] MEDS: Sodium Chloride 0.9% 10 ML Syringe FLUSH PRN (16:07)
[2023-05-19 16:13] LABS: BACTERIA,URINE FEW /HPF (0-FEW/HPF); EPITHELIAL CELLS,URINE OCCASIONAL /HPF (NOT SEEN); MUCUS,URINE RARE /LPF (NOT SEEN); WBC,URINE 0-5 /HPF (0-5/HPF)
[2023-05-19] MEDS ORDERED: Take Home: Ondansetron 4 MG Tab.DIS, 5 Tab Pack PO ONE (16:16)
[2023-05-19] MEDS: Take Home: Ondansetron 4 MG Tab.DIS, 5 Tab Pack PO ONE (16:26)
== END 2023-05-19 16:28 | disposition home or self-care (01) ==
LOC: DL.ED 14:37
DX: K52.9 Noninfective gastroenteritis and colitis, unspecified (principal); I10 Essential (primary) hypertension; E11.9 Type 2 diabetes mellitus without complications; Z88.8 Allergy status to other drugs, medicaments and biological substances
CPT/HCPCS: 36415; 80053; 80305-QW; 80307; 81001; 83605; 83735; 85025; 86140; 96374; 96375; 96376; 99284; 99284-25; C9113; J2405; J3490; J7030; Q0162

== ENCOUNTER 2023-08-20 09:18 | Emergency (ER) | payer OTHER ==
[2023-08-20] MEDS ORDERED: Sodium Chloride 0.9% 10 ML Syringe FLUSH PRN (09:43)
[2023-08-20 09:44] LABS: APPEARANCE,URINE CLEAR (CLEAR); BILIRUBIN,URINE NEGATIVE (NEGATIVE); COLOR,URINE YELLOW (YELLOW); GLUCOSE,URINE NEGATIVE (NEGATIVE); KETONES,URINE TRACE (NEGATIVE); LEUKOCYTE ESTERASE,URINE NEGATIVE (NEGATIVE); NITRITE,URINE NEGATIVE (NEGATIVE); OCCULT BLOOD,URINE TRACE-INTACT (NEGATIVE); PH,URINE 6.5 (5.0-9.0); PROTEIN,URINE 30 (NEGATIVE)
[2023-08-20] MEDS ORDERED: Sodium Chloride 0.9% 1,000 ML IV ONE (09:46)
[2023-08-20 09:50] LABS: RBC,URINE 0-5 /HPF (0-5); WBC,URINE 0-5 /HPF (0-5/HPF)
[2023-08-20 09:51] LABS: AMORPHOUS SEDIMENT,URINE RARE /HPF (NOT SEEN); BACTERIA,URINE RARE /HPF (0-FEW/HPF); EPITHELIAL CELLS,URINE RARE /HPF (NOT SEEN); MUCUS,URINE RARE /LPF (NOT SEEN)
[2023-08-20 09:58] LABS: BASOPHILS PERCENT AUTO 0.1 % (0.0-1.0); EOSINOPHILS PERCENT AUTO 0.3 % (1.0-3.0); HEMATOCRIT 40.7 % (40.0-54.0); HEMOGLOBIN 14.2 g/dL (14.0-18.0); LYMPHOCYTES PERCENT AUTO 9.1 % (20.5-50.1); MEAN CORPUSCULAR HEMOGLOBIN 32.7 pg (27.0-34.0); MEAN CORPUSCULAR HGB CONC 34.9 g/dL (33.0-35.0); MEAN CORPUSCULAR VOLUME 93.8 fL (80-100); NEUTROPHILS PERCENT AUTO 82.5 % (42.2-75.2); PLATELET COUNT,PLT 172 10^3/uL (150-450); RED BLOOD CELL COUNT 4.34 10^6/uL (4.6-6.2); WHITE BLOOD CELL COUNT,WBC 13.5 10^3/uL (5.0-10.0)
[2023-08-20 10:06] LABS: CORONAVIRUS COVID-19 NAA NEGATIVE (NEGATIVE); INFLUENZA A NAA NEGATIVE (NEGATIVE); INFLUENZA B NAA NEGATIVE (NEGATIVE); RESPIRATORY SYNCYTIAL VIR NAA NEGATIVE (NEGATIVE)
[2023-08-20 10:18] LABS: A/G RATIO 0.64; ANION GAP 10.9 mEq/L (7-13); BILIRUBIN TOTAL 0.9 mg/dL (0.2-1.0); BUN/CREATININE RATIO 12.3 (No establ ref range); CALCIUM 8.9 mg/dL (8.5-10.1); CREATININE 1.22 mg/dL (0.70-1.30); EST CRCL DRUG DOSING (CG) 82.3 mL/min; POTASSIUM,K 3.9 mmol/L (3.5-5.1); PROTEIN TOTAL,TP 7.7 g/dL (6.4-8.2)
[2023-08-20] MEDS ORDERED: Iopamidol 612 MG/ML 100 ML Bottle IVPUSH ONE (10:28)
[2023-08-20] MEDS ORDERED: Ondansetron 4 MG/2 ML SDV IV ONE (10:31)
[2023-08-20] MEDS ORDERED: HYDROmorphone 0.5 MG/0.5 ML Syringe IVPUSH ONE (10:32)
[2023-08-20] MEDS ORDERED: Pantoprazole 40 MG Vial IVPUSH ONE (11:19)
[2023-08-20] MEDS ORDERED: Take Home: Acetaminophen/HYDROcodone 325-5 MG, 5 Tab Pack PO ONE (11:22)
[2023-08-20] MEDS ORDERED: Take Home: Ondansetron 4 MG Tab.DIS, 5 Tab Pack PO ONE (11:22)
== END 2023-08-20 11:40 | disposition home or self-care (01) ==
LOC: DL.ED 09:18
DX: K29.00 Acute gastritis without bleeding (principal); M54.50 Low back pain, unspecified; B34.9 Viral infection, unspecified; I10 Essential (primary) hypertension; E11.9 Type 2 diabetes mellitus without complications; Z88.8 Allergy status to other drugs, medicaments and biological substances; Z20.822 Contact with and (suspected) exposure to COVID-19
CPT/HCPCS: 0241U; 36415; 74177; 80053; 81001; 83605; 83690; 84145; 85025; 87081; 87430; 96361; 96374; 96375; 99284; 99284-25; A9270-GY; C9113; J1170; J2405; J3490; J7030; Q0162; Q9967